=== PATIENT | male | born 1935 | race Caucasian/White ===

== ENCOUNTER 2019-02-11 11:01 | Day surgery (SDC) | payer OTHER, SELFPAY ==
[2019-02-11] MEDS: PROPARACAINE 0.5% OPHTH SOL 2 DROPS EYE-OP (11:25)
[2019-02-11] MEDS: CATARACT EYE COMPOUND (10 DROPS/SYRINGE) 3 DROPS EYE-OP (11:30)
[2019-02-11 11:35] VITALS: BP 153/84; PULSE 60; RESP 16; TEMP 36.9; O2SAT 97; BMI 25.7
--- NOTE | 2019-02-11 12:55 | PM.PREOP ---
Pre-operative Note Interval Note History & Physical reviewed/Exam performed by Physician: No Changes to H&P: No
--- NOTE | 2019-02-11 12:55 | PM.OP.1 ---
Operative Date/Time/Diagnoses Pre-op diagnosis: Nuclear cataract right eye Procedure & Clinicians Procedure: Cataract Surgery Same procedure as scheduled: Yes Surgeon: Damien Chen Anesthesia Type: MAC +/- and Sedation Operative Notes Procedure in detail: Patient brought to the operating suite. Tetracaine drops placed in the right eye. Patient was prepped and draped in sterile manner. Wire lid speculum was placed in the eye. Betadine drops were placed on the eye. This was irrigated. Lidocaine jelly was placed on the eye. A paracentesis port was created with a side-port blade. 0.1 mL 1% preservative free lidocaine was injected into the anterior chamber. The anterior chamber was deepened with viscoelastic. 2.6 mm keratome was used to create a temporal clear corneal incision. Cystotome and Utrata forceps were used to create continuous tear capsulorrhexis. Balanced salt solution was used to hydro dissect the nucleus. The phacoemulsification handpiece was inserted and the nucleus was removed using the stop and chop technique. The irrigation aspiration handpiece was inserted and the remaining cortex was removed. Anterior chamber was deepened with viscoelastic. An Lozano ZCB00 intraocular lens with a power of 18.5 was injected into the capsular bag. Irrigation aspiration handpiece was inserted and the remaining viscoelastic was removed. Incision was hydrated with balanced salt solution and found to be leak free with pressure with Weck-Nasrin sponges. 0.1 mL Vigamox injected anterior chamber. 0.3 mL Kenalog 10 mg was injected subconjunctivally. Lid speculum was removed. The patient left the operating room in excellent condition. Complications: none Condition: stable Disposition: same day surgery
[2019-02-11] MEDS: PHENYLEPHRINE/LIDOCAINE VIAL (OR) 0.2 ML EYE-OP (13:12)
[2019-02-11] MEDS: TRIAMCINOLONE 50 MG/5 ML VIAL INJ (13:13)
[2019-02-11] MEDS: CHONDROIDTIN/SOD HYALURONATE 1.05 ML SYRINGE INTRAOCULA (13:13)
[2019-02-11] MEDS: MOXIFLOXACIN OPHTH DROPS 3 ML BOTTLE 2 DROPS INJ (13:13)
[2019-02-11] MEDS: LIDOCAINE JELLY 2% 5 ML 1 APPLIC TOP (13:14)
[2019-02-11] MEDS: BALANCED SALT IRRIG SOLN NO.2 500 ML, EPINEPHrine 1 MG IRR (13:14)
[2019-02-11] MEDS: TETRACAINE 0.5% OPHTH DROPS 4 ML 2 DROPS EYE-OP (13:14)
[2019-02-11 13:34] VITALS: BP 133/81; PULSE 59; RESP 16; TEMP 36.8; O2SAT 95
== END 2019-02-11 13:55 | disposition home or self-care (01) ==
LOC: OR 11:04
PROVIDERS: PCP Student in an Organized Health Care Education/Training Program; Visit Provider Ophthalmology
PROC: (CPT 66984; principal; 2019-02-11 12:45)
DX: H25.11 Age-related nuclear cataract, right eye (principal)
CPT/HCPCS: 66984; J0171; J2250; J3010; J3301

== ENCOUNTER → 2019-07-31 11:21 | Outpatient (CLI) | payer OTHER, SELFPAY ==
--- NOTE | 2019-07-31 11:24 | DI.RAD.S_ITS ---
PROCEDURE: XR CHEST 2V INDICATIONS: cough TECHNIQUE: 2 views of the chest were acquired. COMPARISON: [facility], , CHEST 2 VIEW, 08/15/2016, 9:50. FINDINGS: Surgical changes and devices: None. Lungs and pleura: Lungs are clear. No pleural effusions or pneumothorax. Mediastinum: Mediastinal contours are normal. Heart size is normal. Bones and chest wall: No suspicious bony abnormalities. Unchanged thoracolumbar compression fracture. Soft tissues appear unremarkable. IMPRESSION: No acute disease Dictated by: Erick Yee M.D. on 07/31/2019 at 15:18 Approved by: Erick Yee M.D. on 07/31/2019 at 15:19
[2019-07-31 12:31] LABS: B Type Natriuretic Peptide 192 (<100)
[2019-07-31 12:34] LABS: Erythrocyte Sedimentation Rate 32 MM/HR (0-15)
[2019-07-31 12:47] LABS: Hemoglobin A1C% w Est Avg Glu 5.2 % (4.0-6.0)
[2019-07-31 12:50] LABS: Blood Urea Nitrogen 24 mg/dL (9-20); C-Reactive Protein Quant 1.1 mg/dL (<1.0); Calcium 9.6 mg/dL (8.4-10.2); Carbon Dioxide 28 mmol/L (22-32); Chloride 105 mmol/L (98-107); Estimated Glomerular Filt Rate 57.7 mL/min (>60); Glucose 100 mg/dL (80-110); HEMOLYSIS < 15 (0-50); Potassium 4.9 mmol/L (3.4-5.1); Sodium 142 mmol/L (137-145)
== END ==
PROVIDERS: PCP Student in an Organized Health Care Education/Training Program; Visit Provider Student in an Organized Health Care Education/Training Program
DX: R05 Cough (principal); I73.9 Peripheral vascular disease, unspecified; R06.02 Shortness of breath; R60.9 Edema, unspecified
CPT/HCPCS: 36415; 71046; 80048; 83036; 83880; 85651; 86140

== ENCOUNTER → 2019-08-07 11:54 | Outpatient (CLI) | payer OTHER, SELFPAY ==
--- NOTE | 2019-08-07 11:57 | DI.ECHO.S_ITS ---
[facility] +---------+ : : [address] [place] : : : : [id number] : : : : Phone: [phone] Echocardiogram Report + + :Name: ZAHRA PERES Study Date: 08/07/2019 Height: 70 in : :[facility] Weight: 195 lb : : Gender: Male BSA: 2.1 m2 : :: 1935 Age: 84 yrs BP: 138/90 mmHg: :Reason For Study: Dyspnea : :Ordering Physician: Maira : :Hospitalist Performed By: Art Yan : :Referring: BALDO BOYD : + + Interpretation Summary Left ventricular systolic function is normal with the ejection fraction visually estimated to be 55-60% without focal wall motion abnormalities. There is mild concentric left ventricular hypertrophy. Diastolic parameters suggest a pseudonormalization pattern, consistent with probable elevated filling pressures. The right ventricle is mild to moderately dilated and systolic systolic function is at the lower limits of normal. Pulmonary artery pressures cannot be estimated because of the lack of a measurable TR jet velocity but the IVC suggests a CVP of around 3 mmHg. The left atrium is severely dilated and the right atrium is mildly dilated. There is mild to moderate mitral regurgitation and mild to moderate aortic regurgitation. There is no other significant valvular heart disease. The aortic root and ascending aorta are mildly enlarged. Procedure: A two-dimensional transthoracic echocardiogram with color flow and Doppler was performed. The study quality was technically adequate. Images from the parasternal window were difficult to obtain and are suboptimal in quality. There is no prior echocardiogram noted for this patient. The patient was in normal sinus rhythm during the exam. Left Ventricle: The left ventricle is normal in size. There is mild concentric left ventricular hypertrophy. There is moderate proximal septal thickening noted. Left ventricular systolic function is normal. The ejection fraction is estimated to be 55-60%. There are no focal wall motion abnormalities. Diastolic parameters suggest a pseudonormalization pattern, consistent with probable elevated filling pressures. Right Ventricle: The right ventricle is mild to moderately dilated. Right ventricular systolic function is at the lower limits of normal. Atria: The left atrium is severely dilated. The right atrium is mildly dilated. The interatrial septum is intact with no evidence for an atrial septal defect. Mitral Valve: There is moderate mitral annular calcification. The mitral valve leaflets appear mildly thickened, but open well. The mitral valve leaflets are mildly calcified. There is mild to moderate mitral regurgitation. Aortic Valve: The aortic valve is trileaflet. The aortic valve is mildly calcified. There is mildly reduced leaflet mobility. There is no hemodynamically significant valvular aortic stenosis. There is mild to moderate aortic regurgitation. Tricuspid Valve: The tricuspid valve is normal in structure and function. There is trace tricuspid regurgitation. Pulmonary artery pressures cannot be estimated because of the lack of a measurable TR jet velocity but the IVC suggests a CVP of around 3 mmHg. Pulmonic Valve: The pulmonic valve is not well visualized. There is trace pulmonic regurgitation. There is no other significant valvular heart disease. Great Vessels: The aortic root is borderline dilated. The ascending aorta is mildly enlarged. The pulmonary artery is normal size. The IVC is of normal diameter and collapses greater than 50% with a sniff. This suggests a low right atrial pressure of 3 mm Hg. Pericardium/ Pleura There is no pericardial effusion. There is no pleural effusion. MMode/2D Measurements & Calculations LVIDd: 3.7 cm LVOT diam: 2.3 cm LVIDs: 2.4 cm Ao root diam: 3.8 cm FS: 34.8 % Aortic Jxn: 3.4 cm IVSd: 1.7 cm LVPWd: 1.0 cm LV goins. diameter/BSA (cm/m^2): 1.8 LV sys. diameter/BSA (cm/m^2): 1.2 LA A2 area: 27.6 cm2 RA long axis: 6.4 cm LA A4 area: 24.8 cm2 RA area: 19.1 cm2 LA length (vol): 5.7 cm RA vol: 48.5 ml LA vol: 101.7 ml RA : 23.5 ml/m2 LA vol index: 49.2 ml/m2 TAPSE: 2.5 cm Doppler Measurements & Calculations Ao V2 max: 136.1 cm/sec LVOT Max Darlyn: 92.7 cm/sec Ao V2 mean: 94.1 cm/sec LV V1 max P.4 mmHg Ao max P.4 mmHg LV V1 VTI: 20.1 cm Ao mean P.1 mmHg NILS(I,D): 3.1 cm2 Ao V2 VTI: 27.1 cm NILS(V,D): 2.9 cm2 sev ratio: 0.74 NILS indexed to BSA (cm^2/m^2): 1.5 AI P1/2t: 472.1 msec AI dec slope: 265.4 cm/sec2 MV E max darlyn: 54.7 cm/sec TR max darlyn: 170.5 cm/sec MV A max darlyn: 41.4 cm/sec TR max P.9 mmHg MV E/A: 1.3 PA V2 max: 71.3 cm/sec Med Peak E' Darlyn: 3.6 cm/sec PA V2 mean: 52.0 cm/sec E/E' med: 15.2 PA mean P.2 mmHg Lat Peak E' Darlyn: 7.6 cm/sec PA Accel Time: 0.10 sec E/E' lat: 7.2 E/e' average: 11.2 MV dec time: 0.45 sec MV A dur: 0.03 sec SV(LVOT): 84.2 ml Reading Physician:PM
--- NOTE | 2019-08-07 13:57 | DI.MRI.S_ITS ---
PROCEDURE: MR LUMBAR SPINE WO CON INDICATIONS: Claudication TECHNIQUE: Noncontrast sagittal T1 spin echo and T2 fast echo, sagittal STIR, axial T1 and T2 fast spin echo through the lumbar spine. In cases with scoliosis, additional coronal T2 fast spin echo may be performed. COMPARISON: None. FINDINGS: Image quality: Excellent. Alignment and Curvature: There is trace retrolisthesis of L1 on L2, L2 on L3, L3 and L4, L4-L5 and L5 on S1. Bone Marrow: Marrow is of normal overall signal. Schmorl's node with reactive changes noted along the inferior endplate of L4. No acute vertebral body compression fractures. Old compression deformity is noted at L1. Increased T1 and T2 signal is present at L2 most suggestive of hemangioma. Spinal Cord: Conus medullaris terminates at the L1 level. Visualized cord demonstrates normal signal and size. Paraspinous Soft Tissues: No paravertebral masses. Left renal cyst is present. Discs: Moderate to severe desiccation is present throughout the lumbar spine. L1-L2: Mild disc bulge with right posterior paracentral protrusion. No spinal stenosis. Mild to moderate bilateral foraminal narrowing with facet and ligamentum flavum hypertrophy. L2-L3: Mild disc bulge with minimal spinal stenosis. Moderate to severe bilateral foraminal narrowing with facet and ligamentum flavum hypertrophy. L3-L4: Mild disc bulge with mild spinal stenosis. Mild to moderate bilateral foraminal narrowing with facet and ligamentum flavum hypertrophy. L4-L5: Mild disc bulge with mild to moderate spinal stenosis. Moderate to severe left and mild to moderate right foraminal narrowing with facet and ligamentum flavum hypertrophy. L5-S1: Mild disc bulge with severe spinal stenosis and canal compression. There is severe bilateral foraminal narrowing with minimal nerve root flattening bilaterally. Facet and ligamentum flavum hypertrophy are present. IMPRESSION: 1. Multilevel disc bulges. 2. Multilevel spinal stenosis most severe at L5-S1 secondary to disc bulge with contributing factors retrolisthesis, as well as facet/ligamentum flavum arthropathy. 3. Multilevel foraminal narrowing most severe at L5-S1 secondary to facet arthropathy. Dictated by: Josephine Chau M.D. on 08/07/2019 at 17:39 Approved by: Josephine Chau M.D. on 08/07/2019 at 17:43
== END ==
PROVIDERS: PCP Student in an Organized Health Care Education/Training Program; Visit Provider Student in an Organized Health Care Education/Training Program
DX: I08.0 Rheumatic disorders of both mitral and aortic valves (principal); I77.89 Other specified disorders of arteries and arterioles; R06.09 Other forms of dyspnea; I73.9 Peripheral vascular disease, unspecified; R60.9 Edema, unspecified; N32.89 Other specified disorders of bladder; N13.30 Unspecified hydronephrosis; M47.817 Spondylosis without myelopathy or radiculopathy, lumbosacral region; M47.816 Spondylosis without myelopathy or radiculopathy, lumbar region; M48.07 Spinal stenosis, lumbosacral region; M48.061 Spinal stenosis, lumbar region without neurogenic claudication; M51.27 Other intervertebral disc displacement, lumbosacral region; M51.26 Other intervertebral disc displacement, lumbar region
CPT/HCPCS: 72148; 93306

== ENCOUNTER → 2019-08-12 09:44 | Outpatient (CLI) | payer OTHER, SELFPAY ==
--- NOTE | 2019-08-12 09:45 | DI.US.S_ITS ---
PROCEDURE: US RENAL COMPLETE INDICATIONS: URINARY RETENTION AND HYDRONEPHROSIS TECHNIQUE: Real-time scanning was performed of the kidneys and bladder, with image documentation. COMPARISON: [facility], US, ABDOMEN COMPLETE, 07/03/2016, 10:05. FINDINGS: Kidneys: Kidneys are normal in size. Right kidney measures 13.7 cm long; left kidney measures 12.9 cm long. Right renal cortical thickness is 1.6 cm; left renal cortical thickness is 1.3 cm. Renal cortical echotexture is normal. Moderate right and [id number] left hydroureteronephrosis present. Left renal cyst redemonstrated measuring up to 5.7 cm. Bladder: Pre-void bladder volume is 991 mL. Post-void residual is 692 mL. Pre-void images demonstrate no intraluminal masses or stones. On pre-void images, bilateral ureteral jets are noted with color Doppler interrogation. (Of note, ureteral jets may not be detectable in up to 25% of cases due to insufficient differences in specific gravity between ureteral and bladder urine). Bladder trabeculations present. Miscellaneous: No free pelvic fluid. IMPRESSION: 1. Moderate right and moderate to severe left hydroureteronephrosis likely related to chronic bladder outlet obstruction given the appearance of the bladder with significant post void residual and bladder wall trabeculations Dictated by: Nilo Le A Interpreted: Josephine Chau MD on 08/12/2019 at 11:33 Approved by: Josephine Chau M.D. on 08/12/2019 at 16:22
== END ==
PROVIDERS: PCP Student in an Organized Health Care Education/Training Program; Visit Provider Student in an Organized Health Care Education/Training Program
DX: R33.9 Retention of urine, unspecified (principal); N13.30 Unspecified hydronephrosis; N32.89 Other specified disorders of bladder; N28.1 Cyst of kidney, acquired
CPT/HCPCS: 76770

== ENCOUNTER → 2019-10-27 13:09 | Outpatient (CLI) | payer OTHER, SELFPAY ==
[2019-10-27 13:18] LABS: Bacteria Urine None Seen
[2019-10-27 15:21] LABS: Appearance Urine UA CLEAR; Bilirubin Urine UA NEGATIVE (NEGATIVE); Color Urine UA YELLOW; Glucose Urine UA NEGATIVE (Negative); Ketones Urine UA NEGATIVE (NEGATIVE); Leukocyte Esterase Urine UA NEGATIVE (NEGATIVE); Nitrite Urine UA NEGATIVE (Negative); Occult Blood Urine UA TRACE-INTACT (Negative); Protein Urine UA TRACE (Negative); Urobilinogen Urine UA 0.2 E.U./dL (0.2)
[2019-10-27 15:56] LABS: Culture Indicated Urine Cult Not Indicated; RBC Urine 5-10/HPF (0-5/HPF); Squamous Epithelial Cell Urine 0-1 /HPF (0-5/HPF); WBC Urine 0-1/HPF (0-5/HPF)
== END ==
PROVIDERS: PCP Student in an Organized Health Care Education/Training Program; Referring Provider Specialist; Visit Provider Specialist
DX: N39.0 Urinary tract infection, site not specified (principal)
CPT/HCPCS: 81001

== ENCOUNTER → 2019-12-08 15:10 | Outpatient (CLI) | payer OTHER, SELFPAY ==
[2019-12-08 17:06] LABS: BUN Creatinine Ratio 26.8 (6-22); Blood Urea Nitrogen 30 mg/dL (9-20); Calcium 9.2 mg/dL (8.4-10.2); Carbon Dioxide 23 mmol/L (22-32); Chloride 105 mmol/L (98-107); Estimated Glomerular Filt Rate > 60.0 mL/min (>60); Glucose 96 mg/dL (80-110); HEMOLYSIS < 15 (0-50); Potassium 4.4 mmol/L (3.4-5.1); Sodium 138 mmol/L (137-145)
[2019-12-08 17:40] LABS: Prostate Specific Antigen 1.95 ng/mL (0.10-4.00)
== END ==
PROVIDERS: PCP Student in an Organized Health Care Education/Training Program; Referring Provider Specialist; Visit Provider Specialist
DX: N18.9 Chronic kidney disease, unspecified (principal); N40.3 Nodular prostate with lower urinary tract symptoms
CPT/HCPCS: 36415; 80048; 84153

== ENCOUNTER → 2019-12-24 11:02 | Outpatient (CLI) | payer OTHER, SELFPAY ==
[2019-12-24 11:19] LABS: RBC Urine None Seen (0-5/HPF)
[2019-12-24 12:17] LABS: Appearance Urine UA CLEAR; Bilirubin Urine UA NEGATIVE (NEGATIVE); Color Urine UA YELLOW; Glucose Urine UA NEGATIVE (Negative); Ketones Urine UA NEGATIVE (NEGATIVE); Leukocyte Esterase Urine UA 3+ (NEGATIVE); Nitrite Urine UA NEGATIVE (Negative); Occult Blood Urine UA TRACE-LYSED (Negative); Protein Urine UA NEGATIVE (Negative); Specific Gravity Urine UA <=1.005 (1.000-1.035); Urobilinogen Urine UA 0.2 E.U./dL (0.2)
[2019-12-24 12:43] LABS: Bacteria Urine Few (2-10); Culture Indicated Urine Specimen Cultured; Squamous Epithelial Cell Urine 0-1 /HPF (0-5/HPF); WBC Urine 1-5/HPF (0-5/HPF)
== END ==
PROVIDERS: PCP Student in an Organized Health Care Education/Training Program; Referring Provider Specialist; Visit Provider Specialist
DX: N39.0 Urinary tract infection, site not specified (principal)
CPT/HCPCS: 81001; 87077; 87086; 87147

== ENCOUNTER → 2019-12-26 14:16 | Outpatient (CLI) | payer OTHER, SELFPAY ==
[2019-12-27 21:35] LABS: COVID19 Sendout Not Detected (Not Detect)
== END ==
PROVIDERS: PCP Student in an Organized Health Care Education/Training Program; Visit Provider Registered Nurse
DX: Z01.812 Encounter for preprocedural laboratory examination (principal)
CPT/HCPCS: 87635

== ENCOUNTER 2019-12-29 06:49 | Inpatient (IN) | payer OTHER, SELFPAY ==
[2019-12-24 08:33] VITALS: BMI 25.0
[2019-12-29] VITALS (17 sets, daily range): BP systolic 99–153; BP diastolic 60–75; PULSE 62–75; RESP 11–113; TEMP 36.2–36.7; O2SAT 90–98; BMI 24.7
--- NOTE | 2019-12-29 | PATH_ITS ---
[facility] Accession Number: [id number] . 01 Material submitted: . prostate - PROSTATE . 01 Clinical history: . PROSTATECTOMY RADICAL RETROPUBIC W/PLND . 02 Diagnosis: Prostate, Prostatectomy: Prostate with features of benign prostatic hyperplasia. Negative for high-grade PIN or malignancy. [facility] 12/31/2019 1547 Local . 02 Electronically signed: . Emile Wheat MD, PhD, Pathologist NPI- [id number] . 01 Gross description: . Received in formalin, labeled prostate adenoma, is a 53 gram, 5.3 x 4.7 x 3.8 cm penaloza-white multinodular irregular prostate gland. The seminal vesicles and vasa differentia are absent. The specimen is serially sectioned from the possible base to the possible apex into eight slices and has a white whorled multinodular spongy edematous cut surface. The specimen cannot be oriented therefore the exterior is inked blue and the orifices are inked orange. Section code: (A1-A2) slice 1, presumed base, perpendicularly sectioned, entirely submitted; (A3-A5) slice 3, trisected, entirely submitted; (A6, A7) slice 4, retail sales representative; (A8, A9) slice 5, retail sales representative; (A10) slice 7, retail sales representative; (A11-A12) slice 8, retail sales representative perpendicular sections. ([id number]) /MRV 12/31/2019 1233 Local . 02 Pathologist provided ICD-10: N40.1, R33.9 . 02 CPT . 567197 Performed at: [address], [place], [place] [id number] MD Ulises Glover MD Phone: [phone] Performed at: 02 [facility] [address] [place] [id number] MD Shauna Gillespie MD Phone: [phone]
[2019-12-29] MEDS: LACTATED RINGERS 1,000 ML 42 ML IV ×2 (07:24→09:33)
[2019-12-29] MEDS: CEFAZOLIN 2 GM/100 ML FROZ.PIGGY IV (07:40)
--- NOTE | 2019-12-29 07:41 | PM.PREOP ---
Pre-operative Note Interval Note History & Physical reviewed/Exam performed by Physician: Yes Changes to H&P: No H&P completed within 30 days and has changed as indicated here:: There are no changes to the history and physical examinations scanned on file.
[2019-12-29] MEDS: ACETAMINOPHEN IV 1,000 MG/100 ML VIAL 400 MG IV (08:10)
--- NOTE | 2019-12-29 08:42 | SUR.OPER ---
Supine on padded OR bed, head on pillow, arms secured on padded arm boards at <90 degrees abduction, legs uncrossed, safety belt at thigh, tape over blanket over lower legs.
--- NOTE | 2019-12-29 08:42 | SUR.OPER ---
Patient became diaphoretic with low heart rate during spinal; some altered mental status with random extremity movement, denied chest pain. Procedure aborted. 12-lead EKG done. See anesthesia record.
[2019-12-29] MEDS: BUPIVACAINE 0.5% W/ EPI (PF) 10 ML VIAL 30 ML INJ (09:31)
[2019-12-29] MEDS: BUPIVACAINE LIPOSOME 266 MG/20 ML VIAL INJ (09:32)
--- NOTE | 2019-12-29 10:37 | PM.OP.1 ---
Operative Date/Time/Diagnoses Date of procedure: 12/29/19 Time of procedure: 10:37 Pre-op diagnosis: 1. Urinary retention. Post-op diagnosis: same Procedure & Clinicians Procedure: 1. Simple open prostatectomy Same procedure as scheduled: Yes Indications: 1. Urinary retention. Surgeon: Shayla Edmonds Infant And Toddler Teacher: Miriam Machado Anesthesia Type: General Operative Notes Findings: 1. Lower abdominal tissue planes obliterated and encased in fibrosis related to previous inguinal hernia mesh placement the cross beyond the midline. 2. Bladder was severely trabeculated. 3. 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 The plane between the adenoma and the capsule was uncomplicated. Closure Type: primary Specimen(s): other (Prostate adenoma) Applied: catheter (#22 [place] Patel catheter) and drain(s) (Fifteen Citizen [place] Lonnie drain.) Estimated Blood Loss (mL): 100 Blood products transfused: none Tourniquet time (min): 0 Procedure in detail: The patient was positioned in supine and administered general anesthesia. Spinal anesthetic was abandoned due to patient basal vagal response at initial attempt to place Duramorph spinal anesthetic. The lower abdomen genitalia and groin were then prepped and draped in sterile fashion an 18 Citizen [place] Patel catheter was then inserted lower urinary tract and the bladder contents drained. Next a midline infraumbilical incision was performed with the findings as described above. Once the pelvic retroperitoneal space was entered the anterior surface of bladder was then exposed after filling the bladder with 300 cc of sterile water. 0.5% Marcaine with epinephrine was then used to infiltrate the midline anterior bladder wall. A cautery cystotomy was then performed. The same local anesthetic was then used to infiltrate the epithelium and bladder neck muscle surrounding the bladder neck. Cautery incision of the mucosa and bladder neck musculature was then performed. The appropriate plane was identified between the adenoma and the capsule. A 0 -Vicryl suture was then utilized for repetitive over hand throws into the posterior adenoma in combination with circumferential blunt dissection. Eventually the adenoma was delivered in its entirety. It was handed off the surgical field to be submitted for routine gross and microscopic examination. The bladder neck was then repaired with interrupted [id number] 2 0 Monocryl were needed for hemostasis. The prostatic fossa was packed with lap sponges for 5 minutes for hemostasis. Hemostasis was found to be adequate. A [address] [place] [address] Patel catheter was then inserted into the bladder. An inner mucosal muscular running 4 0 Monocryl was then performed on the anterior cystotomy. A seromuscular closure using a a running vertical mattress was then performed as the 2nd, outer closure layer of the cystotomy. Next the balloon was inflated to 20 cc and was hand irrigated to light pink. A 15 [place] Lonnie drain was then passed through a separate stab incision to the right of the midline incision. Its distal tip was positioned in the space of Retzius it was secured to the skin with a 200 silk using a VII and all technique. Next the 8 abdominal rectus fascia and skin were infiltrated with diluted Exparel local anesthetic. The rectus fascia was then closed with a running 0 PDS. Subcutaneous layer was closed with a running 2 0 Vicryl. The skin was reapproximated with a running subcuticular 4 0 Monocryl the drain site and midline incision were then dressed with a tailored segment of Telfa with an op site applied for 5 occlusion. The patient was then awakened transferred to a gurney and transported to the recovery room. Complications: none Post-operative Condition: stable Disposition: PACU Plan for aftercare: Admit to acute care
[2019-12-29] MEDS: LACTATED RINGERS 1,000 ML 125 ML IV (11:40)
[2019-12-29] MEDS: HYDROMORPHONE 0.5 MG INJ IV ×4 (11:40→20:00)
--- NOTE | 2019-12-29 12:14 | PC.NURSE ---
Addendum entered by Laila Kenny R.N. 12/29/19 13:57: irrigated ferrera again due to increased c/o pressure again, several small clots manipulated Original Note: PT ARRIVAL TO 225 FROM PACU- C/O LOWER ABD DISCOMFORT - MEDICATED WITH 0.5MG IV DILAUDID AFTER GETTING IVF RUNNING AND IRRIGATED FERRERA CATHETER - DISLODGED SEVERAL SMALL CLOTS AND IS DRAINING BLOODY URINE AT PRESENT- AT BEDSIDE - ORIENTED TO ROOM AND CALL L[facility] WELL POLICIES AND PROCEDURES
[2019-12-29] MEDS: OXYCODONE IR 5 MG TABLET PO (12:32)
[2019-12-29] MEDS: OXYCODONE IR 10 MG TABLET PO ×2 (17:43→23:52)
[2019-12-30 00:15] VITALS: BP 126/67; PULSE 68; RESP 16; TEMP 36.6; O2SAT 94
--- NOTE | 2019-12-30 03:03 | PC.NURSE ---
Addendum entered by Jing Garber R.N. 12/30/19 06:25: Patient was able to rest after PO analgesic, 0.5mg IV Dilaudid given x1 at 0400 for breakthrough pain. Another 30ml sang fluid from Lonnie this am, and total of 2050ml red UOP from Patel. Original Note: Patternmaker Plaster Notes-Patient assessed at 2330, oriented x4, little drowsy and forgetful, at bedside. Reviewed pain medication and plan of care for night, 10mg oxycodone given per prn. Steri strips intact to lower abdomen, Lonnie drain emptied of 70ml sang fluid, Patel patent draining red urine with no clots, will monitor. VSS, SpO2 >94% on RA.
[2019-12-30] MEDS: LACTATED RINGERS 1,000 ML 125 ML IV (03:20)
[2019-12-30] MEDS: HYDROMORPHONE 0.5 MG INJ IV ×2 (03:51→16:38)
[2019-12-30 04:00] VITALS: BP 114/73; PULSE 70; RESP 16; TEMP 36.4; O2SAT 94
--- NOTE | 2019-12-30 07:39 | PM.PN.1 ---
Subjective Subjective Date Patient Seen: 12/30/19 Time Patient Seen: 07:40 Interval history: He experienced intermittent troubling hiccups through the night and into this morning. He had a small lunch, and most of his dinner. Since then he has been drinking copious free water. He denies nausea. He denies passage of flatus. Exam Vital Signs (past 8 hours): - 12/30/19 00:15 12/30/19 04:00 Temperature 97.9 F 97.6 F Pulse Rate 68 70 Respiratory Rate 16 16 Blood Pressure 126/67 114/73 Pulse Oximetry 94 94 Oxygen Delivery Method Room Air Oxygen Flow Rate 0 Narrative Exam Narrative: He is sitting upright awake alert and good color. He obviously is having some hiccups and complains of mild reflux. Chest equal clear and unlabored bilaterally. Heart rate is regular pulse about 80. Abdomen is nondistended, flat. Incisions and drains intact. Patel indwelling draining dilute maroon colored outflow without clot. Extremities have no pallor edema or cyanosis. Assessment & Plan Assessment & Plan narrative: Assessment: 1. Overall stable postoperative day 1. Status post simple open prostatectomy. 2. Mild GI upset and hiccups. Possibly a bit zealous regarding p.o. fluids. 3. Pathology pending. Plan: 1. We will order Reglan, TUMS and Dulcolax suppository. 2. Increased activity and ambulate in the ponce. 3. Follow-up pathology when available. 4. Catheter care and use instruction before discharge.
[2019-12-30 07:40] VITALS: BP 116/71; PULSE 65; RESP 18; TEMP 36.5; O2SAT 94
[2019-12-30] MEDS: ENOXAPARIN 30 MG/0.3 ML SYRINGE SUBCUT (07:58)
[2019-12-30] MEDS: BISACODYL 10 MG SUPP PR (07:58)
[2019-12-30] MEDS: ACETAMINOPHEN 325 MG TABLET 650 MG PO ×2 (07:58→13:33)
[2019-12-30] MEDS: OXYCODONE IR 10 MG TABLET PO ×4 (07:58→22:41)
[2019-12-30] MEDS: CALCIUM CARBONATE 500 MG TAB 1000 MG PO (07:59)
[2019-12-30] MEDS: METOCLOPRAMIDE HCL 10 MG TABLET PO ×2 (12:07→16:38)
[2019-12-30] MEDS: SODIUM CHLORIDE 0.9% FLUSH 10 ML IV (12:07)
[2019-12-30 12:30] VITALS: BP 150/82; PULSE 64; RESP 20; TEMP 36.3; O2SAT 95
--- NOTE | 2019-12-30 14:13 | CM.DANOTE ---
DCP: Case received, EMR reviewed and met with patient. , Lynne, was present in the room as well. Introduced self and role. Was able to obtain information from patient regarding his baseline activity level prior to surgery. DCP assessment completed with information currently available. Patient is an 84 year old male who admitted yesterday morning to the care of the urologist for planned surgery. PCP: Dr. Ortiz. Payer: confirmed: [employer]. Patient came to the hospital for a surgical procedure. He had a simple open prostectomy procedure yesterday. Patient has had history of urinary retention. Met with patient and his . They are both pleasant. Patient was sitting up in his chair. He has an indwelling catheter at this time. Patient and his indicated that prior to surgery, he was self-catheterizing between 6-7 times a day in order to urinate, for the last two months. mentioned, she will need some teaching since he will be going home with his catheter. Patient is supposed to follow up with Dr. Edmonds on January 07, for catheter removal. Patient is alert and oriented, independent. 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 He stated, I'm hoping that I can get back to normal so I can fly again. Both he and his live here in [place], and stated that they are involved with the board at this hospital. P: DCP to continue to follow. Patient should be able to go home when he is medically stable. He will go home with his catheter, and will follow up 01/[address] Edmonds. Lenora Cooper RN/Calendering Supervisor
--- NOTE | 2019-12-30 14:32 | PC.NURSE ---
SHIFT SUMMARY: PATIENT RATES PAIN 3-4/10. OXYCODONE AND TYLENOL MANAGING PAIN TO TOLERABLE LEVELS. LARGE UOP FOR THIS SHIFT. BRADY COLOR IS BURGUNDY RED, NO CLOTS, DRAINING FREELY. CATHETER CARE PROVIDED W/ TEACHING R/T SAME. PATIENT WAS UP IN RECLINER FOR BOTH MEALS, AND WALKED IN HALLS W/ SBA. TOLERATED WELL. STILL NO FLATUS AFTER SUPPOSITORY THIS AM. NO N/V. IVF SL'D PER ORDERS. TAKING PO INTAKE SLOWLY. REPORTS INTERMITT HICCUPS BUT NOT NOTED BY THIS SHEETING PULLER THIS SHIFT.
[2019-12-30 16:32] VITALS: BP 127/71; PULSE 60; RESP 16; TEMP 36.9; O2SAT 96
--- NOTE | 2019-12-30 18:32 | PC.NURSE ---
Addendum entered by Jayshree Birmingham R.N. 12/30/19 20:06: Patient with order for bilat SCD or compression stockings. Patient refusing both, states hes not going to wear either of them. Patient has been up a couple of times ambulating all of acute care/ICU floor. Original Note: Patient up walking hallways a few times this shift. Up in chair for dinner. Patient c/o increased pain at the beginning of the shift. Gave IVP dilaudid and noticed some clots in the tubing of ferrera cath. Gently flushed cath and got lots of little clots expelled and about 200ml of bloody urine, flushed again and about the same came out of his bladder. Patient stated that his abdominal pain was much better. After dinner patient stated he was getting a little more discomfort in his lower abd. Flushed ferrera again and got many more small clots and about another 200ml of bloody urine. Each flush was 60ml of Ns x4. And since ferrera drained on day shift, evening shift has had a total of 900ml. Will drain again around 2200. Spoke with , he wanted his LR fluids restarted, changed his pain meds to q4hrs from q6hrs and he wants the patient to take it easy for the rest of the day. Spoke with patient who is agreeable to resting. Patient has been A&O, calm and cooperative.
[2019-12-30] MEDS: LACTATED RINGERS 1,000 ML 100 ML IV (19:08)
[2019-12-30 19:15] VITALS: BP 125/66; PULSE 59; RESP 16; TEMP 36.8; O2SAT 95
[2019-12-31 01:00] VITALS: BP 135/72; PULSE 71; RESP 18; TEMP 36.7; O2SAT 95
[2019-12-31] MEDS: OXYCODONE IR 10 MG TABLET PO ×4 (02:18→14:26)
[2019-12-31 05:00] VITALS: BP 135/51; PULSE 70; RESP 18; TEMP 36.8; O2SAT 92
[2019-12-31] MEDS: LACTATED RINGERS 1,000 ML 100 ML IV (05:08)
--- NOTE | 2019-12-31 07:00 | PC.NURSE ---
Shift note: Flushed catheter once on shift. Patient was complaining of pain and fullness. Urine has been dark red with multiple various size clots.
--- NOTE | 2019-12-31 07:30 | PM.DS.1 ---
History of Present Illness History of Present Illness Date Patient Seen: 12/31/19 Time Patient Seen: 07:30 Chief complaint: 05233 Prostatectomy Radical Retropubic w/PLND Narrative: 84-year-old white male admitted on 12/29/2019, and underwent uncomplicated simple open prostatectomy under general anesthesia for urinary retention. Discharge Providers Provider Date of admission: 12/29/19 06:49 Discharge Date: 12/31/19 Primary care physician: Quinn Ortiz MD Consults: 12/29/19 10:54 Consult to Discharge Planning Routine Comment: Discharge provider: Shayla Edmonds MD Summary Hospital Course Discharge Diagnosis: Urinary retention. Hospital Course: The patient was admitted on the morning of 12/29/2019 and underwent uncomplicated simple open prostatectomy under general anesthesia. Postoperative course was largely unremarkable. He tolerated general diet in the afternoon of the day of operation. He was able to ambulate without assistance beginning the 1st postoperative morning. In the evening of postoperative day 1, following extensive ambulation and the hallways, urine outflow became dark maroon and small clots were evacuated with gentle hand irrigation several times. With encouragement for increased p.o. fluids supplemented with IV LR the urine outflow cleared substantially throughout the night. On the morning of postoperative day 2. His only remaining complaint was that of postoperative incisional pain. Pain overall is managed with oral narcotic analgesics. He has not yet had a bowel movement but is passing flatus. He indicates a desire and hope for discharge this day. Status at Discharge Cognitive/behavioral status at discharge: oriented Functional status at discharge: independent ambulation Overall status at discharge: patient is not back to baseline (May require minimal assistance in transfer and hygiene. He and his Cristóbal are comfortable with those circumstances and responsibility.) Time Spent with Patient Time spent: Greater than 30 minutes Exam Vital Signs (past 8 hours): - 12/31/19 01:00 12/31/19 05:00 Temperature 98.0 F 98.3 F Pulse Rate 71 70 Respiratory Rate 18 18 Blood Pressure 135/72 135/51 L Pulse Oximetry 95 92 Oxygen Delivery Method Room Air Oxygen Flow Rate 0 Narrative Exam Narrative: He is sitting upright in bed in no distress. He is talkative and appropriate. Chest equal clear and unlabored bilaterally. Heart rate is regular rate. Abdomen is mildly distended, bowel sounds are active. KELLIE drain and incisional dressings are intact. KELLIE output is scant. Patel catheter is indwelling and intact with a very light maroon outflow, without clot. Extremities show no evidence of edema pallor or cyanosis. Discharge Plan Discharge Plan Patient Disposition: Home Discharge orders & Medications Prescriptions: New oxycodone 10 mg Tablet 10 mg PO Q4HR PRN (Reason: Pain, Severe (7-10)) Qty: 30 RF: 0 acetaminophen 325 mg Tablet 650 mg PO Q6HR PRN (Reason: Pain, Mild (1-3)) Qty: 60 RF: 0 docusate sodium [DOK] 100 mg Capsule 100 mg PO BID PRN (Reason: Constipation) Qty: 30 RF: 1 enoxaparin [Lovenox] 30 mg/0.3 mL Syringe 30 mg SUBCUT DAILY Qty: 30 RF: 0 ciprofloxacin HCl [Cipro] 250 mg tablet 250 mg PO Q12H Qty: 6 RF: 0 No Action No Known Home Medications RF: 0 Follow up/Referrals: Quinn Ortiz MD [Primary Care Provider] - Shayla Edmonds MD [Physician] - Diet/Activity/Treatments Diet: Diet as Tolerated Activity: Ad gus. Rest and increased free water consumption if catheter outflow dark ends with blood. Catheter: 2-way Patel Skin/Wound/Dressing Care Report to your healthcare provider any signs of infection, such as:: chills, fever, increased pain, unusual drainage and unusual redness Dressing: Remove abdominal and drain dressing prior to discharge. Visit Report/Discharge Packet Instructions: DI for Prescription Opioid Use Stand Alone Forms: Surgery Discharge Discharge Data Primary Care Provider: Quinn Ortiz
[2019-12-31 07:40] VITALS: BP 131/72; PULSE 66; RESP 20; TEMP 37.3; O2SAT 95
[2019-12-31] MEDS: ACETAMINOPHEN 325 MG TABLET 650 MG PO ×2 (08:58→13:31)
[2019-12-31] MEDS: BISACODYL 10 MG SUPP PR (08:58)
[2019-12-31 11:00] VITALS: BP 135/79; PULSE 66; RESP 18; TEMP 37.7; O2SAT 96
[2019-12-31] MEDS: ENOXAPARIN 30 MG/0.3 ML SYRINGE SUBCUT (11:15)
--- NOTE | 2019-12-31 15:03 | CM.DPNOTE ---
DC Note: DC order in place by Dr Edmonds. RN Laila suggests HH RN to assist patient and spouse Cristóbal in managing new ferrera catheter and Lovenox injections. Patient already has f/u scheduled w/ Dr Edmonds for removal of the catheter. Met w/patient and spouse to discuss HH RN and HH agency options; both were very pleased by the idea, no agency reference. Placed call to [facility] , [facility] and [facility] and none of these agencies were able to take patient's [employer] insurance coverage. Reviewed above and discussed private pay options, provided the [facility] and highlighted in-home care giving agencies. Also provided contact for the [facility]. 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 P: DC home w/supportive spouse and family via pov LISA Huffman
--- NOTE | 2019-12-31 15:27 | PC.NURSE ---
PREPARED FOR DISCHARGE ENTIRE SHIFT- EXTENSIVE TEACHING TO PT AND , LEIGH RE: CATHETER CARE INCLUDING LEG BAG AND LARGE COLLECTION BAG WELL INTERMITTENT IRRIGATION ( THIS WAS STRESSED TO NOT DO THIS OFTEN- ONLY COMPLETELY NECESSARY) WELL LOVENOX TEACHING IN WHICH PT STATED HE WOULD DO HIMSELF - PAIN CONTROLLED ON ROUTINE TYLENOL WITH NEEDED OXYXODONE- BOWEL MANAGEMENT REVIEWED AND PT AND COMFORTABLE WITH DISCHARGE PLAN-
== END 2019-12-31 15:10 | disposition home or self-care (01) | DRG 707 ==
PROVIDERS: Admitting Provider Specialist; PCP Student in an Organized Health Care Education/Training Program; Referring Provider Specialist; Visit Provider Specialist
PROC: 0VT00ZZ Resection of Prostate, Open Approach (ICD-10-PCS; principal; 2019-12-29 07:45)
DX: N40.1 Benign prostatic hyperplasia with lower urinary tract symptoms (principal); N13.8 Other obstructive and reflux uropathy
CPT/HCPCS: 93005; 93010; 94762; C9290; J0131; J0330; J0690; J1100; J1170; J1650; J2274; J2704

== ENCOUNTER → 2020-04-30 10:55 | Outpatient (CLI) | payer OTHER, SELFPAY ==
[2019-12-29 11:52] VITALS: BMI 24.7
[2020-05-02 09:28] LABS: COVID19 Sendout Not Detected (Not Detect)
== END ==
PROVIDERS: PCP Student in an Organized Health Care Education/Training Program; Visit Provider Physician Assistant
DX: Z11.59 Encounter for screening for other viral diseases (principal)
CPT/HCPCS: 87635

== ENCOUNTER 2020-05-03 15:46 | Day surgery (SDC) | payer OTHER, SELFPAY ==
[2019-12-29 11:52] VITALS: BMI 24.7
[2020-04-30 09:57] VITALS: BMI 25.0
[2020-05-03 16:12] VITALS: BP 156/75; PULSE 64; RESP 18; TEMP 37.4; O2SAT 97; BMI 25.2
[2020-05-03] MEDS: LACTATED RINGERS 1,000 ML 42 ML IV (16:32)
--- NOTE | 2020-05-03 16:47 | PM.PREOP ---
Pre-operative Note Interval Note History & Physical reviewed/Exam performed by Physician: Yes Changes to H&P: No
[2020-05-03] MEDS: CEFAZOLIN 2 GM/100 ML FROZ.PIGGY IV (17:35)
--- NOTE | 2020-05-03 17:51 | SUR.OPER ---
Lithotomy on padded OR bed, head on pillow, arms secured on padded arm boards at <90 degrees abduction. Legs secured in padded yellow fins stirrups.
--- NOTE | 2020-05-03 18:07 | P.OP_ITS ---
Operative Date/Time/Diagnoses Date of procedure: 05/03/20 Time of procedure: 18:07 Pre-op diagnosis: Bladder neck contracture Post-op diagnosis: same Procedure & Clinicians Procedure: 1. Cystoscopy and transurethral incision of bladder neck contracture. Same procedure as scheduled: Yes Indications: 1. Acquired bladder neck contracture. 2. Severe lower urinary tract symptoms. Surgeon: Shayla Edmonds Click Yes if Unassisted: Yes Anesthesia Type: General Operative Notes Findings: 1. Urethra-normal caliber without stricture or lesion. 2. External sphincter-coapted. 3. Prostate-widely patent status post resection. 4. Bladder-there is a tight, 3 mm, bladder neck contracture. Incisions were made radially opening the aperture to at least 24 [place]er. There was 1+ trabeculation the bladder. No stone or tumor. Ureteral orifices are normal bilaterally. Closure Type: not applicable Specimen(s): none sent Applied: catheter (20. [place] Islander 2 way Patel catheter.) Estimated Blood Loss (mL): 0 Blood products transfused: none Tourniquet time (min): 0 Procedure in detail: The patient was positioned supine was administered general anesthesia. He was then repositioned semi lithotomy in the lower abdomen, genitalia, and groin were prepped and draped in sterile fashion. The 22 [place]er visual urethra tome was then advanced in the lower inner tract under direct visualization with the findings as described above. At the level of bladder neck a 0.35 diameter guidewire was advanced through the small aperture of the bladder neck. Radial incisions were then using the cold knife down to vascularized tissue. The rigid sheath of the scope was then used to gently focal rim right left anterior and posterior. The bladder was then partially filled and the urethra tome was removed. A 20 [place] Patel catheter was then passed lower urinary tract, the balloon inflated to 10 cc, and then placed to gravity drainage. The patient was then repositioned in supine, awakened, and transferred to [facility] in stable condition. Complications: none Post-operative Condition: stable Disposition: PACU Plan for aftercare: Discharge home.
[2020-05-03 18:13] VITALS: BP 116/54; PULSE 70; RESP 14; TEMP 36.3; O2SAT 95
[2020-05-03] MEDS: BELLADONNA/OPIUM SUPPOSITORIES 1 EACH PR (18:16)
[2020-05-03 18:18] VITALS: BP 108/50; PULSE 76; RESP 15; O2SAT 94
[2020-05-03 18:23] VITALS: BP 117/60; PULSE 75; RESP 14; TEMP 36.4; O2SAT 93
[2020-05-03 18:29] VITALS: BP 115/61; PULSE 80; RESP 12; TEMP 36.4; O2SAT 94
[2020-05-03 18:51] VITALS: BP 121/74; PULSE 73; RESP 16; TEMP 36.4; O2SAT 94
== END 2020-05-03 18:55 | disposition home or self-care (01) ==
PROVIDERS: PCP Student in an Organized Health Care Education/Training Program; Referring Provider Specialist; Visit Provider Specialist
PROC: 0TBC8ZZ Excision of Bladder Neck, Via Natural or Artificial Opening Endoscopic (ICD-10-PCS; CPT 52500; principal; 2020-05-03 17:00)
DX: N32.0 Bladder-neck obstruction (principal); N40.1 Benign prostatic hyperplasia with lower urinary tract symptoms
CPT/HCPCS: 52276; J0690; J2405; J2704; J3010

== ENCOUNTER → 2023-08-23 13:34 | Outpatient (CLI) | payer OTHER, SELFPAY ==
[2023-03-01 08:20] VITALS: BMI 24.7
[2023-08-23 14:07] LABS: Add Manual Diff / Slide Review NO; Basophils Absolute Auto 100 /uL (0-100); Basophils Percent Auto 0.7 % (0-2); Eosinophils Absolute Auto 200 /uL (0-450); Eosinophils Percent Auto 3.2 % (2-4); Hematocrit 43.9 % (41-53); Hemoglobin 14.8 g/dL (13.5-17.5); Lymphocytes Absolute Auto 3200 /uL (1100-4500); Lymphocytes Percent Auto 42.9 % (25-40); Mean Corpuscular HGB Conc 33.7 % (30-36); Mean Corpuscular Hemoglobin 31.4 PG (26-34); Mean Corpuscular Volume 93.3 fL (80-100); Monocytes Absolute Auto 1000 /uL (0-900); Monocytes Percent Auto 13.4 % (3-14); Neutrophils Absolute Auto 2900 /uL (1500-7000); Neutrophils Percent Auto 39.8 % (50-75); Platelet Count 249 X10^3/uL (150-400); Red Blood Cell Count 4.71 X10^6/uL (4.5-5.9); Red Cell Distribution Width 13.8 % (11.6-14.8); White Blood Cell Count 7.4 X10^3/uL (4.5-11.0)
[2023-08-23 14:18] LABS: Alanine Aminotransferase 74 IU/L (<50); Albumin 4.4 g/dL (3.5-5.0); Alkaline Phosphatase 184 U/L (38-126); Aspartate Aminotransferase 59 IU/L (17-59); BUN Creatinine Ratio 20.9 (6-22); Bilirubin Total 0.9 mg/dL (0.2-1.3); Blood Urea Nitrogen 18 mg/dL (9-20); Calcium 9.3 mg/dL (8.4-10.2); Carbon Dioxide 25 mmol/L (22-32); Chloride 97 mmol/L (98-107); Estimated Glomerular Filt Rate > 60 mL/min (>60); Globulin 4.5 g/dL (1.7-4.1); Glucose 100 mg/dL (80-110); HEMOLYSIS < 15 (0-50); Potassium 4.7 mmol/L (3.4-5.1); Sodium 132 mmol/L (137-145); Total Protein 8.9 g/dL (6.3-8.2)
== END ==
LOC: LAB 13:36
PROVIDERS: PCP Family Medicine; Referring Provider Family Medicine; Visit Provider Family Medicine
DX: Z00.00 Encounter for general adult medical examination without abnormal findings (principal); N40.0 Benign prostatic hyperplasia without lower urinary tract symptoms; R39.9 Unspecified symptoms and signs involving the genitourinary system; M79.604 Pain in right leg; M79.605 Pain in left leg
CPT/HCPCS: 36415; 80053; 85025

== ENCOUNTER → 2023-09-18 15:07 | Outpatient (CLI) | payer OTHER, SELFPAY ==
[2023-03-01 08:20] VITALS: BMI 24.7
[2023-09-18 16:04] LABS: Add Manual Diff / Slide Review NO; Basophils Absolute Auto 0 /uL (0-100); Basophils Percent Auto 0.6 % (0-2); Eosinophils Absolute Auto 200 /uL (0-450); Eosinophils Percent Auto 2.6 % (2-4); Hematocrit 44.2 % (41-53); Hemoglobin 15.1 g/dL (13.5-17.5); Lymphocytes Absolute Auto 2500 /uL (1100-4500); Lymphocytes Percent Auto 32.5 % (25-40); Mean Corpuscular HGB Conc 34.1 % (30-36); Mean Corpuscular Hemoglobin 31.4 PG (26-34); Mean Corpuscular Volume 92.3 fL (80-100); Monocytes Absolute Auto 800 /uL (0-900); Neutrophils Absolute Auto 4200 /uL (1500-7000); Neutrophils Percent Auto 54.3 % (50-75); Platelet Count 225 X10^3/uL (150-400); Red Blood Cell Count 4.79 X10^6/uL (4.5-5.9); Red Cell Distribution Width 13.4 % (11.6-14.8); White Blood Cell Count 7.7 X10^3/uL (4.5-11.0)
[2023-09-18 16:20] LABS: Ammonia (NH3) < 9 umol/L (9-30)
[2023-09-18 16:21] LABS: Alanine Aminotransferase 73 IU/L (<50); Albumin 4.6 g/dL (3.5-5.0); Alkaline Phosphatase 166 U/L (38-126); Aspartate Aminotransferase 64 IU/L (17-59); BUN Creatinine Ratio 20.4 (6-22); Bilirubin Total 0.7 mg/dL (0.2-1.3); Blood Urea Nitrogen 22 mg/dL (9-20); Calcium 9.2 mg/dL (8.4-10.2); Carbon Dioxide 23 mmol/L (22-32); Chloride 103 mmol/L (98-107); Estimated Glomerular Filt Rate > 60 mL/min (>60); Globulin 4.5 g/dL (1.7-4.1); Glucose 97 mg/dL (80-110); HEMOLYSIS < 15 (0-50); Potassium 4.6 mmol/L (3.4-5.1); Sodium 137 mmol/L (137-145); Total Protein 9.1 g/dL (6.3-8.2)
[2023-09-19 03:13] LABS: HBsAg Screen Negative (Negative); Hepatitis A Antibody IgM Negative (Negative); Hepatitis B Core Antibody IgM Negative (Negative); Hepatitis C Antibody Non Reactive (Non Reactive)
[2023-09-20 18:08] LABS: Hep C Virus Ab w/Reflex Quant NEGATIVE s/c (NEGATIVE)
== END ==
PROVIDERS: PCP Family Medicine; Referring Provider Family Medicine; Visit Provider Family Medicine
DX: R79.89 Other specified abnormal findings of blood chemistry (principal); D64.9 Anemia, unspecified; N40.0 Benign prostatic hyperplasia without lower urinary tract symptoms
CPT/HCPCS: 36415; 80053; 80074; 82140; 85025; 86803

== ENCOUNTER → 2023-09-19 08:28 | Outpatient (CLI) | payer OTHER, SELFPAY ==
[2023-03-01 08:20] VITALS: BMI 24.7
--- NOTE | 2023-09-19 08:28 | DI.US.S_ITS ---
PROCEDURE: US ABDOMEN LIMITED INDICATIONS: R upper quadrant TECHNIQUE: Real-time scanning was performed of the abdominal and retroperitoneal organs, with image documentation. COMPARISON: None. FINDINGS: Liver: Liver is normal in size and homogeneous in echotexture. Gallbladder: No gallstones. No wall thickening. No pericholecystic edema. Negative sonographic Stoll's sign. Biliary ducts: Intrahepatic bile ducts are non-dilated. Extrahepatic bile duct caliber measures 5 mm. Normal is 6-7 mm or less in diameter, or 10 mm or less post-cholecystectomy. Pancreas: Visualized portions of the pancreas are sonographically normal. Miscellaneous: No free abdominal fluid. IMPRESSION: Unremarkable right upper quadrant ultrasound REFERENCE MATERIALS DELETE FROM FINAL REPORT ACR White Paper: Incidental Findings of Gallbladder and Biliary Tract on CT/MRI * Gallstones without mass: perform US only if symptomatic. 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 No followup is specifically recommended, but can be performed at clinicians' discretion, using post-contrast CT. * Dense GB contents (20-100 HU): sludge, vicarious contrast excretion, hemorrhage, or stones. No specific followup needed. * Diffuse GB wall thickening >3 mm, without mass: hepatitis, CHF, liver disease, hypoproteinemia, or pancreatitis. No specific followup needed. * Focal GB wall thickening or mass: polyp, GB CA, cholesterolosis, adenomyomatosis. Evaluation and followup depends on mass size and clinical factors. US may have specific features for adenomyomatosis. * GB polyp 6 mm or less: benign, no followup needed. * GB polyp 7-9 mm: benign, adenoma vs small CA. Yearly US followup, with surgical consult if size increase. * GB polyp 10 mm or larger: surgical consult. * Pericholecystic fluid: GB perforation or other collection: individual assessment needed. * Distended GB (greater than 9 x 4 cm): GB obstruction or simply a fasting state. No further evaluation if asymptomatic. * Biliary duct dilation: >6-7 mm diameter, or >10 mm s/p cholecystectomy. Recommend correlation with LFT's. If LFT's abnormal, consider MRCP, ERCP, or endoscopic US for evaluation. Approved by: Darius Schulte M.D. on 09/19/2023 at 18:39
== END ==
LOC: US 08:28
PROVIDERS: PCP Family Medicine; Referring Provider Family Medicine; Visit Provider Family Medicine
DX: R79.89 Other specified abnormal findings of blood chemistry (principal)
CPT/HCPCS: 76705

== ENCOUNTER 2024-12-26 17:15 | Emergency (ER) | payer OTHER, SELFPAY ==
[2023-03-01 08:20] VITALS: BMI 24.7
--- NOTE | 2024-12-26 17:34 | DI.RAD.S_ITS ---
PROCEDURE: XR SHOULDER RT MIN 2V INDICATIONS: fall TECHNIQUE: 3 views of the shoulder were acquired. COMPARISON: [facility], CR, XR CHEST 2V, 07/31/2019, 11:45. FINDINGS: Bones: Fracture of the right humeral head is suspected. No dislocations. No suspicious bony lesions. Visualized ribs appear intact. Severe right shoulder DJD. Soft tissues: No suspicious soft tissue calcifications. IMPRESSION: Suspected fracture of the right humeral head. Severe right shoulder DJD. Consider CT for further evaluation. Dictated by: Franco Cruz M.D. on 12/26/2024 at 18:34 Approved by: Franco Cruz M.D. on 12/26/2024 at 18:39
[2024-12-26 17:35] VITALS: BP 156/88; PULSE 70; RESP 17; TEMP 36.8; O2SAT 96; BMI 25.7
--- NOTE | 2024-12-26 21:46 | PC.NURSE ---
Pt left ER around 1900; Dr Plaza we call them back for treatment of fx humerus. Pt contacted by phone, will return.
== END 2024-12-26 21:50 | disposition left against medical advice (07) ==
PROVIDERS: Emergency Provider Emergency Medicine; PCP Family Medicine
DX: S42.291A Other displaced fracture of upper end of right humerus, initial encounter for closed fracture (principal); W01.0XXA Fall on same level from slipping, tripping and stumbling without subsequent striking against object, initial encounter
CPT/HCPCS: 73030; 99281